=== PATIENT | male | born 1960 | race Caucasian/White ===

== ENCOUNTER 2024-03-19 10:39 | Day surgery (SDC) | payer OTHER ==
[~2024-03-19] VITALS: Ht 188 cm; Wt 75.3 kg
[2024-03-19] MEDS ORDERED: diphenhydrAMINE 50 MG/ML VIAL ONE (11:05)
[2024-03-19] MEDS ORDERED: MIDAZOLAM 5 MG/5 ML VIAL ONE (11:06)
[2024-03-19] MEDS ORDERED: fentaNYL citrate 0.05 MG/ML VIAL ONE (11:06)
[2024-03-19] MEDS ORDERED: LIDOCAINE 2% 100 MG/5 ML UJET TP ONE (11:06)
[2024-03-19] MEDS: MIDAZOLAM 2 MG/2 ML VIAL IVP ONE (11:16)
[2024-03-19] MEDS: fentaNYL citrate 0.05 MG/ML VIAL IVP ONE (11:17)
== END 2024-03-19 12:49 | disposition home or self-care (01) ==
LOC: MDS 10:39 → MMU 10:40 → MDS 12:49
PROVIDERS: ATTEND Internal Medicine Gastroenterology
DX: R19.5 Other fecal abnormalities (principal); I10 Essential (primary) hypertension; F31.9 Bipolar disorder, unspecified; F41.9 Anxiety disorder, unspecified; J44.9 Chronic obstructive pulmonary disease, unspecified; E78.5 Hyperlipidemia, unspecified; Z88.0 Allergy status to penicillin; Z79.899 Other long term (current) drug therapy; Z98.890 Other specified postprocedural states
CPT/HCPCS: 45378; J1200; J2250; J3010